=== PATIENT | male | born 1990 | race Caucasian/White ===

== ENCOUNTER 2019-08-07 00:09 | Emergency (ER) | payer OTHER, SELFPAY ==
[2019-08-07 00:18] VITALS: BP 148/97; PULSE 108; RESP 16; TEMP 36.7; O2SAT 98; BMI 25.7
--- NOTE | 2019-08-07 00:21 | ED_ITS ---
HPI - Allergic Reaction General: Chief complaint: Allergic Reaction Stated complaint: allergic reaction Time Seen by Provider: 08/07/19 00:21 Source: patient Mode of arrival: ambulatory Limitations: no limitations History of Present Illness: HPI narrative: Patient comes in today for complaints of hives and rash generalized to the body. Patient reports getting stung yesterday by a wasp. Other than that patient does not recall any medication changes or new foods. Patient took 100 mg of Benadryl prior to coming to the ER and reports that his hives are much better. Patient appears well. Patient appears in no acute distress. Review of Systems General: Reports: 10 or more systems reviewed and unremarkable except in HPI and below Skin/Breast: Reports: rash PFSH ED PFSH: Social History Smoking and tobacco status: never smoked Physical Exam Const: COMMON NORMALS: no acute distress and patient oriented x3 GENERAL APPEARANCE: cooperative HENMT: COMMON NORMALS: normocephalic and Normal external nose present HEAD & SCALP: normal to inspection and normocephalic NOSE: Normal external nose present MOUTH: Normal oral and palatal mucosa present THROAT: posterior oropharynx normal Eye: GENERAL EYE: appearance normal, both eyes and all related structures Neck/C-Spine: COMMON NORMALS: full ROM Lymph: LYMPHATIC: no lymphadenopathy noted Chest: COMMONS NORMALS: normal inspection of the chest Resp: COMMON NORMALS: normal respiratory effort EFFORT & INSPECTION: Yes able to speak in complete sentences Cardio: COMMON NORMALS: regular rate and regular rhythm RATE: regular rate RHYTHM: regular rhythm GI: COMMON NORMALS: non-tender Back/Pelvis: COMMON NORMALS: thoracic and lumbar spine normal to inspection Extremity: COMMON NORMALS: normal to inspection Neuro: COMMON NORMALS: patient oriented x3 and moves all extremities Psych: COMMON NORMALS: mental status grossly normal and cooperative Skin: NARRATIVE SKIN EXAM: Clearing urticarial rash. Course Vital Signs: Vital signs: Vital Signs Temperature 98.0 F 08/07/19 00:18 Pulse Rate 108 H 08/07/19 00:18 Respiratory Rate 16 08/07/19 00:18 Blood Pressure 148/97 08/07/19 00:18 Pulse Oximetry 98 08/07/19 00:18 MDM - Allergic Reaction MDM Narrative: Medical decision making narrative: Patient comes in today for complaints of rash to his entire body. Exam notes a urticarial rash generalized to the patient body. Vital signs were normal. No airway swelling was noted. Skin was warm and dry. Lungs were clear to auscultation. Differential diagnosis includes but not limited to anaphylaxis, allergic reaction, urticarial rash. Since patient was getting better on his arrival to the ER we will dose with 10 mg dexamethasone IM and encourage continuation of Benadryl routinely over the next 2 to 3 days. Encourage plenty of fluids and follow-up with primary care or return to the ER for worsening symptoms. Patient reported understanding. Discharge Plan Discharge Patient Disposition: Home, Self-Care Clinical Impression: Accidental wasp sting Allergic reaction Qualifiers: Encounter type: initial encounter Qualified Code(s): T78.40XA - Allergy, unspecified, initial encounter Condition: Stable Prescriptions: No Action Keppra 1,000 mg Tablet 1,000 mg PO BID RF: 0 Discharge Orders: Discharge Order (Routine); Ordered 08/07/19 Ordered By: Cirilo Rubalcava Discharge Diet: Usual diet Discharge Activity: Increase activity as tolerated Patient Instructions: Urticaria (ED) Activity Restrictions/Additional Instructions: Continue with Benadryl 25 to 50 mg every 4-6 hours as needed for itching or rash. Avoid spicy or really acidic foods for the next 2 to 3 days to help control rash. Drink plenty of water with medication. Return to the ER for worsening breathing or new concerns. Follow-up with primary care. Coding Level of Care Code ED Switchboard Inspector for Janiya Fwd Exam Comprehensive
[2019-08-07] MEDS: dexamethasone 10 mg/mL INJ IM (00:27)
[2019-08-07 00:40] VITALS: PULSE 88; RESP 16; O2SAT 99
== END 2019-08-07 00:41 | disposition home or self-care (01) ==
PROVIDERS: Emergency Provider Nurse Practitioner Family
DX: T63.461A Toxic effect of venom of wasps, accidental (unintentional), initial encounter (principal); T78.49XA Other allergy, initial encounter
CPT/HCPCS: 12345; 96372; 96375; 99281; 99283; J1100

== ENCOUNTER 2019-08-07 22:55 | Emergency (ER) | payer OTHER, SELFPAY ==
[2019-08-07 23:04] VITALS: BP 160/100; PULSE 112; RESP 14; TEMP 37.3; O2SAT 98; BMI 25.7
--- NOTE | 2019-08-08 00:27 | W.ED.ALLEREA ---
HPI - Allergic Reaction General: Chief complaint: Allergic Reaction Stated complaint: rash, poss allergic reaction Time Seen by Provider: 08/08/19 00:20 History of Present Illness: HPI narrative: Patient had worsening of his symptoms today with the rash coming back that is been scabbed over from face down to his toes. Took Benadryl the rash is gone away he presents without a rash today he said the rash has been itching pretty bad has no other reason he is aware of why he has this rash no exposure anything he went through a lot of the list of things can find any reason for this and there is no wasp being that he is aware of does take Keppra his only medication been on that medicine for year and a half MD complaint: allergic reaction Onset (ago): day(s) Exposure: unknown Associated symptoms: Reports facial swelling, itching and rash; Deny abdominal pain, nausea or vomiting Severity: mild Treatment prior to arrival: benadryl Previous Allergic Reaction History: none Review of Systems Const: Denies: fever(s), chills or body aches Eyes: Denies: change in vision or blurry vision ENMT: Denies: throat pain or nasal congestion Card: Denies: chest pain or dyspnea on exertion Resp: Denies: dyspnea, productive cough or non-productive cough GI: Denies: abdominal pain, nausea or vomiting : Denies: difficulty urinating Musc: Denies: extremity pain Skin/Breast: Reports: rash and pruritus Neuro: Denies: headache(s) Psych: Denies: anxiety or depression Kwabena/Lymph: Denies: easy bruising All/Imm: Reports: facial swelling PFSH ED PFSH: Social History Smoking and tobacco status: never smoked Physical Exam Const: COMMON NORMALS: no acute distress, average body habitus and patient oriented x3 HENMT: COMMON NORMALS: normocephalic HEAD & SCALP: normal to inspection and normocephalic FACE & SINUS: normal facial exam Eye: COMMON NORMALS: conjunctivae normal GENERAL EYE: appearance normal, both eyes and all related structures CONJUNCTIVA: Yes conjunctivae normal Neck/C-Spine: COMMON NORMALS: no JVD Chest: COMMONS NORMALS: normal inspection of the chest Resp: COMMON NORMALS: normal respiratory effort and clear to auscultation bilaterally AUSCULTATION: clear to auscultation bilaterally Cardio: COMMON NORMALS: no JVD, regular rate and regular rhythm RATE: regular rate RHYTHM: regular rhythm GI: COMMON NORMALS: Normal to inspection, nondistended, normoactive bowel sounds present Extremity: COMMON NORMALS: normal to inspection and full ROM Neuro: COMMON NORMALS: patient oriented x3 Skin: NARRATIVE SKIN EXAM: Possibly faint areas of rash on his upper extremities no other seen lips look fine Course Vital Signs: Vital signs: Vital Signs Temperature 99.2 F 08/07/19 23:04 Pulse Rate 112 H 08/07/19 23:04 Respiratory Rate 14 08/07/19 23:04 Blood Pressure 160/100 08/07/19 23:04 Pulse Oximetry 98 08/07/19 23:04 MDM - Allergic Reaction MDM Narrative: Medical decision making narrative: Allergic reaction discussed with patient possibility that it might be his Keppra is allergic to and if rash continues or comes back in a vengeance he is stop Keppra [facility] and see about getting changing to different medication Discharge Plan Discharge Patient Disposition: Home, Self-Care Clinical Impression: Allergic reaction Qualifiers: Encounter type: subsequent encounter Qualified Code(s): T78.40XD - Allergy, unspecified, subsequent encounter Condition: Stable Prescriptions: New hydroxyzine HCl 25 mg tablet 25 mg PO Q6H PRN (Reason: itching) Qty: 14 RF: 0 Medrol ([facility]) 4 mg tablets,dose pack See Rx Instructions .ROUTE .COMPLEX Qty: 21 RF: 0 No Action Keppra 1,000 mg Tablet 1,000 mg PO BID RF: 0 Discharge Orders: Discharge Order (Routine); Ordered 08/08/19 Ordered By: Eduardo Rogers Discharge Diet: Usual diet Discharge Activity: Increase activity as tolerated Patient Instructions: Allergic Reaction, Urticaria (ED) Activity Restrictions/Additional Instructions: Follow-up with medical provider as directed. Take medications as prescribed. Return to the ER or your medical provider if condition worsens. Please read and understand discharge instructions. If any questions ask please. Follow-up with the PA Coding Level of Care Code ED Chef Broiler Or Fry for Janiya Fwsarah Exam Comprehensive
[2019-08-08] MEDS: hyDROXYzine 25 mg Capsule PO (00:39)
[2019-08-08] MEDS: predniSONE 20 mg Tablet 60 MG PO (00:39)
[2019-08-08 00:50] VITALS: RESP 16
== END 2019-08-08 00:51 | disposition home or self-care (01) ==
PROVIDERS: Emergency Provider Nurse Practitioner Family
DX: T78.40XA Allergy, unspecified, initial encounter (principal)
CPT/HCPCS: 12345; 99282; 99283; J7512